=== PATIENT | male | born 1995 | race Caucasian/White ===

== ENCOUNTER 2018-04-27 02:04 | Emergency (ER) | payer OTHER ==
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
[2018-04-27] MEDS ORDERED: IBUPROFEN 800 MG TAB PO ONE (02:26)
[2018-04-27 05:03] VITALS: BP 135/88
== END 2018-04-27 05:06 | disposition left against medical advice (07) ==
DX: M79.662 Pain in left lower leg (principal); M54.5 Low back pain; V04.10XA Pedestrian on foot injured in collision with heavy transport vehicle or bus in traffic accident, initial encounter; Y92.410 Unspecified street and highway as the place of occurrence of the external cause; Y93.01 Activity, walking, marching and hiking; Y99.8 Other external cause status